=== PATIENT | male | born 1985 | race Caucasian/White ===

== ENCOUNTER 2022-05-25 18:00 | Emergency (ER) | payer OTHER, SELFPAY ==
[2022-05-25 18:27] VITALS: BP 127/79; PULSE 64; RESP 16; TEMP 36.7; O2SAT 99
--- NOTE | 2022-05-25 18:31 | XRR_ITS ---
PROCEDURE INFORMATION: Exam: XR Right Hand Exam date and time: 05/25/2022 7:43 PM Age: 36 years old Clinical indication: Injury or trauma; Other: Accidently hit own hand while hammering; Blunt trauma (contusions or hematomas); Right TECHNIQUE: Imaging protocol: Radiologic exam of the Right hand. Views: 1 or 2 views. COMPARISON: No relevant prior studies available. FINDINGS: Bones/joints: Normal. Soft tissues: Ovoid nonspecific radiopaque foreign body between 1st and 2nd digits. XR/XR hand RT 2V [id number] IMPRESSION: Negative for acute fracture.
--- NOTE | 2022-05-25 19:35 | ED_ITS ---
HPI - Extremity Problem General: Chief complaint: Extremity Injury, Upper Stated complaint: LEft hand injury Time Seen by Provider: 05/25/22 19:34 History of Present Illness: Patient is a 36-year-old male comes to the ED with right thumb injury. Patient says he was using a 4 pound hammer today and accidentally hit his right thumb. He said the pain was severe the first hour after injury but its become more moderate. He has not taken any Tylenol or Motrin before coming in the ED. Denies any other injuries. Associated symptoms: Deny chest pain, fever(s) or rash Review of Systems Const: Denies: fever(s), chills or fatigue Eyes: Denies: change in vision or eye discomfort ENMT: Denies: throat pain, odynophagia, nasal discharge or nasal congestion Card: Denies: chest pain, palpitations, edema, swelling of feet/ankles, dyspnea on exertion or orthopnea Resp: Denies: dyspnea, productive cough or non-productive cough GI: Denies: abdominal pain, nausea, vomiting, diarrhea, constipation or hematochezia : Denies: flank pain, difficulty urinating, dysuria or hematuria Musc: Reports: extremity pain (Right thumb); Denies: neck pain, back pain or extremity swelling Skin/Breast: Denies: rash or new lesions Neuro: Denies: headache(s), numbness in extremities or weakness in extremities PFS ED PFSH: Medical History No pertinent family history Surgical History No pertinent past surgical history Physical Exam Const: COMMON NORMALS: no acute distress and patient oriented x3 GENERAL APPEARANCE: cooperative and comfortable HENMT: COMMON NORMALS: normocephalic HEAD & SCALP: normocephalic MOUTH: Normal oral and palatal mucosa present THROAT: posterior oropharynx normal and uvula midline Neck/C-Spine: COMMON NORMALS: supple GENERAL: Yes normal visual inspection Resp: COMMON NORMALS: normal respiratory effort, No retractions, No use of accessory muscles and clear to auscultation bilaterally AUSCULTATION: clear to auscultation bilaterally Cardio: COMMON NORMALS: regular rate, regular rhythm, S1 normal heart sound present, S2 normal heart sound present, No gallops present (Cardio), No clicks present (Cardio), No murmurs present (Cardio) and Peripheral pulses 2+ throughou t RATE: regular rate RHYTHM: regular rhythm HEART SOUNDS: S1 normal heart sound present and S2 normal heart sound present PERIPHERAL PULSES: Peripheral pulses 2+ throughout GI: COMMON NORMALS: Normal to inspection, nondistended, normoactive bowel sounds present, Soft to palpation, non-tender and no masses PALPATION: Yes Soft to palpation : COMMON NORMALS: Yes no CVA tenderness BLADDER/KIDNEY EXAM: Yes no CVA tenderness Back/Pelvis: COMMON NORMALS: no CVA tenderness Extremity: NARRATIVE EXTREMITY EXAM: Right thumb?distal tip is swollen, erythemic and tender. No nail bed or nail damage noted. No subungual hematoma seen. Neuro: COMMON NORMALS: patient oriented x3 GAIT: Yes Normal gait present Skin: GENERAL SKIN EXAM: dry skin Course Vital Signs: Vital signs: Vital Signs Temperature 98.1 F 05/25/22 18:27 Pulse Rate 64 05/25/22 18:27 Respiratory Rate 16 05/25/22 18:27 Blood Pressure 127/79 05/25/22 18:27 Pulse Oximetry 99 05/25/22 18:27 Oxygen Delivery Me thod 05/25/22 18:27 MDM - Extremity (Nontraumatic) Medical Decision Making Patient is a 36-year-old male comes to the ED with right thumb pain after smashing it with a hammer accidentally while working. Vitals are stable. Patient has right thumb distal Swelling, erythema and tenderness. No nailbed or nail damage noted no subungual hematoma seen. X-ray of thumb was suspicious for distal phalanx nondisplaced fracture. Given patient's clinical appearance we will treat with finger splint. I placed order with manager of case patient be referred to Ortho for follow-up of finger fracture. Patient needed updated tetanus so he was given tetanus shot while here in the ED. Return ED precautions given. Patient understood and agreed with plan. Lab Data Radiology Impressions Hand X-Ray 05/25/22 18:31 IMPRESSION: Negative for acute fracture. Discharge Plan Discharge Patient Disposition: Home Clinical Impression: Closed fracture of distal phalanx of thumb Qualifiers: Encounter type: initial encounter Fracture alignment: nondisplaced Laterality: right Qualified Code(s): S62.524A - Nondisplaced fracture of distal phalanx of right thumb, initial encounter for closed fracture Condition: Stable Prescriptions: No Action No Known Home Medications sulfamethoxazole-trimethoprim [Bactrim DS] 800-160 mg tablet 1 tab PO Q12H 7 Days Qty: 14 0RF Discharge Orders: Discharge ED (Routine); Ordered 05/25/22 Ordered By: Shahbaz Solorzano Discharge Diet: Regular Discharge Activity: Increase activity as tolerated Patient Instructions: Finger Fracture (ED) Activity Restrictions/Additional Instructions: Follow-up with medical provider as directed. Case management should be counting in the next several days set up an appointment with Ortho for follow-up on fracture. Take [id number] Tylenol or ibuprofen per bottle instruction as needed for pain. Return to the ER or your medical provider if condition worsens. Please read and understand discharge instructions. Thank you for choosing [facility] for your healthcare needs today. Please realize this is an emergency room and that we are providing you with a medical screening exam and this may not be complete and all inclusive of all the testing and or work up that you may need to determine your ailment or severity of your illness. It is very important that you follow up as instructed or that you return to the Emergency Department should you have concerns or if your condition changes or worsens in any way. Coding Level of Care Code ED Barrel Lathe Operator Outside for Carmen Potter Exam Comprehensive
--- NOTE | 2022-05-28 11:39 | DCPLANNER ---
Addendum entered by Claudia Palma 05/31/22 16:18: Patient had a follow up appointment scheduled for 05.29.[address] Curtis at ortho - patient did attend appointment. Original Note: urban renewal manager had message to schedule a follow up appointment for patient with ortho. urban renewal manager sent patients information to the front office staff at ortho. Patients information will be printed and reviewed. Clinic will call patient with appointment information.
== END 2022-05-25 20:50 | disposition home or self-care (01) ==
PROVIDERS: Emergency Provider Physician Assistant
DX: S62.524A Nondisplaced fracture of distal phalanx of right thumb, initial encounter for closed fracture (principal); W20.8XXA Other cause of strike by thrown, projected or falling object, initial encounter
CPT/HCPCS: 73120; 99283

== ENCOUNTER 2022-11-18 | Emergency (ER) | payer OTHER, SELFPAY ==
[2022-11-18 00:09] VITALS: BP 151/90; PULSE 70; RESP 16; TEMP 36.4; O2SAT 97; BMI 31.0
--- NOTE | 2022-11-18 00:23 | W.ED.WOUNDLC ---
HPI - Wound/Laceration General: Chief Complaint: Wound/Laceration Stated Complaint: left hand lac Time Seen by Provider: 11/18/22 00:22 History of Present Illness: Patient comes in for injury to the left dorsal hand. Patient was working on a truck when he struck the back of his hand against a piece of metal. Patient has sustained a laceration to the dorsal left hand. Patient is normal range of motion of the extremity. Patient appears nontoxic. Patient does not recall his last tetanus but does not want to be updated of the tetanus. Review of Systems Skin/Breast: Reports: new lesions [facility] ED PFSH: Medical History No pertinent family history Surgical History No pertinent past surgical history Social History Smoking and tobacco status: current every day smoker Physical Exam Const: COMMON NORMALS: alert HENMT: COMMON NORMALS: normocephalic HEAD & SCALP: normocephalic Resp: COMMON NORMALS: normal respiratory effort Cardio: COMMON NORMALS: regular rate RATE: regular rate Extremity: COMMON NORMALS: full ROM Neuro: SENSORIUM/ORIENTATION: Yes alert Skin: TRAUMA: laceration (3 cm to the dorsal left hand, only 1 cm is through the dermis.) Procedures Laceration Laceration 1: Site: hand Side (If applicable): left Size (cm): 3 Description: linear Depth: simple, single layer Local Anesthetic: lidocaine 1% Amount of anesthesia used (mL): 2 Pre-repair: wound explored and irrigated extensively Skin layer closed with: nylon Size (cm): 4-0 Number of sutures: 1 Technique: horizontal mattress Course Vital Signs: Vital signs: Vital Signs Temperature 97.5 F L 11/18/22 00:09 Pulse Rate 70 11/18/22 00:09 Respiratory Rate 16 11/18/22 00:09 Blood Pressure 151/90 11/18/22 00:09 Pulse Oximetry 97 11/18/22 00:09 Oxygen Delivery Me thod 11/18/22 00:09 MDM - Wound/Laceration Medical Decision Making 37-year-old male patient comes in today for complaints of injury to the left dorsal hand. On exam there is a superficial laceration to the left dorsal hand is approximately 3 cm. Patient did sustain 1 cm which is through the dermis. Reviewed exam with patient and he wanted to go ahead and have it repaired. 1 mattress suture was used to close the deep part of the laceration. Differential diagnosis includes not limited to laceration, foreign body, need for prophylaxis tetanus. Patient refused prophylaxis tetanus. No foreign body was noted in the wound. Wound closed without difficulty. Patient will be covered with Bactrim for prophylaxis antibiotic. Patient reported understanding of postprocedure care and need for follow-up or return to the ER. Discharge Plan Discharge Patient Disposition: Home Clinical Impression: Laceration Condition: Stable Prescriptions: New sulfamethoxazole-trimethoprim 800-160 mg tablet 1 tab PO DAILY 7 Days Qty: 14 0RF No Action sulfamethoxazole-trimethoprim [Bactrim DS] 800-160 mg tablet 1 tab PO Q12H 7 Days Qty: 14 0RF Discharge Orders: Discharge ED (Routine); Ordered 11/18/22 Ordered By: Hima Acosta Discharge Diet: Usual diet Discharge Activity: Increase activity as tolerated Patient Instructions: Care For Your Stitches (ED) Activity Restrictions/Additional Instructions: Keep wound clean and dry. Sutures need to come out in 1 week. Activity as tolerated. Take antibiotic 1 tablet twice a day for 7 days. Follow-up with primary care in 1 week. Return to ED for new concerns or worsening symptoms. Coding Level of Care Code ED Brim Pouncing Machine Operator for Carmen Potter
[2022-11-18] MEDS: sulfamethoxazole-trimeth DS 160-800 mg Tablet 1 TAB PO (01:02)
== END 2022-11-18 01:05 | disposition home or self-care (01) ==
PROVIDERS: Emergency Provider Nurse Practitioner Family
DX: S61.412A Laceration without foreign body of left hand, initial encounter (principal); F17.210 Nicotine dependence, cigarettes, uncomplicated; W22.09XA Striking against other stationary object, initial encounter
CPT/HCPCS: 12002; 99283